=== PATIENT | female | born 1950 | race Caucasian/White ===

== ENCOUNTER 2018-05-13 09:19 | Outpatient (CLI) | payer MEDICARE, OTHER ==
[2016-03-05 17:54] VITALS: BP 107/50
[2018-05-13 10:31] LABS: eGFR (Non-African) > 60
== END 2018-05-13 09:23 ==
LOC: LAB 09:19
PROVIDERS: ATTEND Family Medicine
DX: R73.9 Hyperglycemia, unspecified (principal); E78.5 Hyperlipidemia, unspecified
CPT/HCPCS: 36415; 80053; 80061; 82043; 83036